=== PATIENT | female | born 1960 | race Caucasian/White ===

== ENCOUNTER 2016-10-18 15:53 | Emergency (ER) | payer OTHER ==
[~2016-10-18] VITALS: Ht 152.4 cm; Wt 68.9 kg
[~2016-10-18 15:53] MED LIST: CALC600T34 PO; SYNT112T PO
[2016-10-18 16:04] VITALS: BP 138/84; PULSE 77; RESP 16; TEMP 99.1; O2SAT 98
[2016-10-18] MEDS ORDERED: TRAZ100T4 PO (16:17)
[2016-10-18] MEDS ORDERED: LEVO125T4 PO (16:17)
[2016-10-18] MEDS ORDERED: LOVA20TA PO (16:17)
[2016-10-18] MEDS ORDERED: CEPH-460 PO (16:32)
--- NOTE | 2016-10-18 16:40 | PD ---
HPI Chief Complaint: Musculoskeletal Complaint Time Seen by Provider: 16:33 Travel History International Travel<30 days: No Contact w/Intl Traveler<30days: No Traveled to known affect area: No History of Present Illness HPI 55-year-old female presents to the emergency room for evaluation of left hand pain, bruising, and swelling after trip and fall earlier today. Patient states she tripped over her cat and slammed her left fourth and fifth fingers against the wall and her left forearm into the dresser. Patient did not actually hit the ground. She denies hitting her head or loss of consciousness. Pain is localized to the left fifth PIP. She reports some pain in the fourth proximal finger. Denies paresthesias. Patient also reports unrelated right knee pain. States it started yesterday after she ran into her cactus. She got stuck with 4 spikes and was able to remove all 4 spikes reports continued pain and redness. Knee is tender to palpation. Slightly worse with range of motion. She is able to ambulate. Denies any trauma or injury to the knee or lower extremity paresthesias. Denies fever, chills, nausea, vomiting, and streaking. PFSH Past Medical History Endocrine: Yes Musculoskeletal: Yes Thyroid Disease: Yes Tetanus Vaccination: Unknown Influenza Vaccination: Yes ?: Not Past Surgical History Gynecologic Surgery: Yes (HYSTERECTOMY) Hysterectomy: Yes Other Surgery: Yes (BILAT BREAST BX) Social History Alcohol Use: Yes (MIXED DRINKS 1 X WEEK) Tobacco Use: No Substance Use: No Allergies-Medications (Allergen,Severity, Reaction): Coded Allergies: Darvocet-N 100 (Verified Allergy, Severe, SHORTNESS OF BREATH, 10/18/16) Latex (Verified Allergy, Severe, Rash, 10/18/16) Penicillin (Verified Allergy, Intermediate, RASH, 10/18/16) Reported Meds & Prescriptions Reported Meds & Active Scripts Active Keflex (Cephalexin) 500 Mg Cap 500 Mg PO Q6H 10 Days Reported Trazodone (Trazodone HCl) 100 Mg Tab 100 Mg PO HS Lovastatin 20 Mg Tab 20 Mg PO HS Levothyroxine (Levothyroxine Sodium) 125 Mcg Tab 125 Mcg PO DAILY Review of Systems Except as stated in HPI: all other systems reviewed are Neg Physical Exam Narrative GENERAL: Well-nourished, well-developed female in no acute distress. Afebrile. Ambulatory. SKIN: Warm and dry. There are 4 superficial abrasions to the right lateral knee in the distribution of the cactus. 2/4 of the wounds are erythematous and tender to palpation. No drainage. No obvious retained foreign body. There is moderate ecchymosis in the left fourth and fifth fingers and a small contusion on the left posterior forearm. HEAD: Normocephalic. EYES: No scleral icterus. No injection or drainage. NECK: Supple, trachea midline. No JVD or lymphadenopathy. EXTREMITY: Left fourth and fifth fingers tender to palpation. Limited range of motion in the PIP joint secondary to pain and swelling. Very mild edema of the left lateral hand. Distal sensation intact. 2+ radial pulses. Less than 2 second capillary refill distally. Right knee is mildly tender to palpation over the lateral knee. Mildly decreased range of motion secondary to pain. Patient can flex and extend at least 30 in either direction. 2+ dorsalis pedis pulse. Data Data Last Documented VS Vital Signs Date Time Temp Pulse Resp B/P Pulse Ox O2 Delivery O2 Flow Rate FiO2 10/18/16 16:25 20 10/18/16 16:04 99.1 77 138/84 98 Orders Hand, Complete ([id number]) (10/18/16 ) [facility] Medical Decision Making Medical Screen Exam Complete: Yes Emergency Medical Condition: Yes Medical Record Reviewed: Yes Differential Diagnosis Skin infection versus sprain versus contusion versus fracture versus dislocation Narrative Course 55-year-old female presents to the emergency room for evaluation of 2 separate complaints. First complaint is left hand pain after trip and fall earlier today. Patient caught her left hand on the door and reports significant pain in the 4th and 5th digits especially over the PIP. Denies paresthesias. Less than 2 second capillary refill distally. Physical exam reveals no obvious deformity. Mild to moderate edema and ecchymosis of the left fifth PIP. X-ray of the hand is negative. Patient placed in Gene wrap and encouraged to apply ice to the affected areas. Patient was told to follow up with her primary care physician in 7 days if symptoms persist for re-x-ray. Second complaint is right knee pain and redness after running into a cactus yesterday. Patient is concerned for retained foreign body but there is nothing obvious on exam. There is a local reaction surrounding the superficial cactus abrasions. Could be due to poison plant or small, developing cellulitis. There is approximately 4 cm of erythema. No lymphangitis or drainage. Full range of motion of the right knee with moderate pain; patient is ambulatory without difficulty. Tenderness to palpation in the center of the cellulitis. Right lower extremity is neurovascularly intact. Patient will be discharged with Keflex and told to follow up with a primary care physician or return for worsening symptoms. She understands and agrees to plan. Diagnosis Primary Impression: Contusion of left hand including fingers Qualified Code: S60.222A - Contusion of left hand including fingers, initial encounter Additional Impression: Cellulitis of right knee Referrals: Primary Care Physician Patient Instructions: Cellulitis (ED), Contusion in Adults (ED), General Instructions Additional Instructions: Rest and drink plenty of fluids. Take Keflex as directed, until gone. Take ibuprofen with food as directed, as needed for pain. Apply ice to the affected area for 20 minutes at a time, as needed for pain and swelling. Follow-up with a primary care physician. Return to the emergency room for worsening symptoms. Med/Other Pt SpecificInfo: Prescription(s) given Scripts Cephalexin (Keflex)500 Mg [id number] Mg PO Q6H 10 Days Ref 0 Prov:Liza Dougherty DO 10/18/16 Disposition: 01 DISCHARGE HOME Condition: Stable Michelle Glasgow Oct 18, 2016 16:40
--- NOTE | 2016-10-18 16:53 | RADHPO ---
EXAM DATE/TIME: 10/18/2016 16:36 [facility] COMPARISON: No previous studies available for comparison. INDICATIONS : Fell into a wall hitting left hand, has pain MEDICAL HISTORY : None. SURGICAL HISTORY : None. ENCOUNTER: Initial ACUITY: 1 day PAIN SCORE: 7/10 LOCATION: Left hand FINDINGS: There is soft tissue swelling over the lateral side of the hand without fracture or dislocation. CONCLUSION: Soft tissue swelling, negative for fracture. Followup in -10 would be of benefit if the patient rem ains symptomatic. Braden Ramirez MD FACR on October 18, 2016 at 16:50 Board Certified Radiologist. This report was verified electronically.
== END 2016-10-18 17:12 | disposition home or self-care (01) ==
LOC: PHEFT 15:53
DX: L03.115 Cellulitis of right lower limb (principal); S60.222A Contusion of left hand, initial encounter; S80.211A Abrasion, right knee, initial encounter; W18.09XA Striking against other object with subsequent fall, initial encounter; Y93.02 Activity, running; Y92.89 Other specified places as the place of occurrence of the external cause; Y99.8 Other external cause status; T14.8 Other injury of unspecified body region
CPT/HCPCS: 73130; 99283